=== PATIENT | male | born 1935 | race Asian ===

== ENCOUNTER 2020-10-03 18:00 | Emergency (ER) | payer OTHER ==
[~2020-10-03 18:00] MED LIST: ADA30 PO; ALTOPREV40 M2 PO; AMLODIPINE BESYL5 M2 PO; BUM1 PO; CARVEDILOL12.5 M1 PO; CLONIDINE HYDR0.1 M1 PO; CORE25 PO; COZ50 PO; COZAAR50 M1 PO; ECO81 PO; FORTAMET500 M1 PO; KLOR-CON 88 MEQ PO; LEVOXYL25 MCG PO; LIPI20 PO; LOSARTAN POTASS50 M1 PO; NOR5 PO
[2020-10-03 18:38] LABS: BASOPHIL % 0.8 % (0.2-1.5); PLATELET COUNT 171 x10^3mcL (152-348); RED CELL DISTRIBUTION WIDTH 14.4 % (12.1-16.2)
[2020-10-03 18:54] LABS: CALCIUM 8.7 mg/dL (8.5-10.1); CARBON DIOXIDE 24.5 mmol/L (21-32); CHLORIDE SERUM 106 mmol/L (98-107); CREATININE SERUM 1.4 mg/dL (0.7-1.3); GLUCOSE SERUM 139 mg/dL (74-106); POTASSIUM SERUM 4.9 mmol/L (3.5-5.1); SODIUM SERUM 140 mmol/L (136-145)
[2020-10-03 18:59] LABS: ALKALINE PHOSPHATASE 65 U/L (46-116); ALT/SGPT 53 U/L (16-63); AST/SGOT 36 U/L (15-37); BILIRUBIN TOTAL 0.6 mg/dL (0.20-1.00); LIPASE 99 IU/L (73-393)
[2020-10-03 19:14] LABS: ALBUMIN 3.2 g/dL (3.4-5.0)
[2020-10-03 21:14] VITALS: BP 150/83
== END 2020-10-03 21:14 | disposition home or self-care (01) ==
LOC: ED 18:00
PROVIDERS: Emergency Medicine
DX: R07.89 Other chest pain (principal); I10 Essential (primary) hypertension; E11.9 Type 2 diabetes mellitus without complications; E78.5 Hyperlipidemia, unspecified; E78.00 Pure hypercholesterolemia, unspecified; Z98.890 Other specified postprocedural states
CPT/HCPCS: 83880